=== PATIENT | male | born 1990 | race Caucasian/White ===

== ENCOUNTER → 2019-11-25 | Outpatient (CLI) | payer OTHER ==
[~2019-11-25] MED LIST: LEVAQUIN 750MG750 M1 PO; MOTRIN 200200 MG/TAB PO; TAMIFLU 75MG75 MG PO
== END ==
LOC: MC.RAD 11-23 13:15
DX: N63.20 Unspecified lump in the left breast, unspecified quadrant (principal)

== ENCOUNTER 2023-12-30 10:53 | Day surgery (SDC) | payer OTHER ==
[~2023-12-30] VITALS: Ht 193 cm; Wt 162.6 kg
[2023-12-30] VITALS (7 sets, daily range): BP systolic 144–160; BP diastolic 77–92; PULSE 64–78; TEMP 97.5–97.8
[~2023-12-30 10:53] MED LIST changes: +Famotidine 20 MG TAB PO SCH; +LR 1,000 ML IV SCH; +NS 20 ML IV ONE; +Ondansetron 4 MG/2 ML VIAL ONE; +dexAMETHasone 10 MG/ML VIAL ONE
[2023-12-30] MEDS ORDERED: fentaNYL 50 MCG/ML 2 ML VIAL ONE ×2 (12:33→15:44)
[2023-12-30] MEDS ORDERED: Ondansetron 4 MG/2 ML VIAL ONE (12:36)
[2023-12-30] MEDS ORDERED: dexAMETHasone 10 MG/ML VIAL ONE (12:36)
[2023-12-30] MEDS ORDERED: NS 20 ML IV ONE (12:36)
[2023-12-30] MEDS ORDERED: Lidocaine PF 2% (20 MG/ML) 5 ML VIAL ONE (14:27)
[2023-12-30] MEDS ORDERED: oxyCODONE/Acetaminophen 5-325 MG TAB PO PRN (14:45)
[2023-12-30] MEDS ORDERED: HYDROcodone/Acetaminophen 7.5-325 MG TAB PO PRN (14:45)
[2023-12-30] MEDS ORDERED: Morphine 4 MG/ML VIAL IV PRN (14:45)
[2023-12-30] MEDS ORDERED: Promethazine 25 MG TAB PO PRN (14:45)
[2023-12-30] MEDS ORDERED: Meperidine 50 MG/ML 1 ML VIAL IV PRN (15:15)
[2023-12-30] MEDS ORDERED: droPERidol 2.5 MG/ML 2 ML VIAL IV PRN (15:15)
[2023-12-30] MEDS ORDERED: fentaNYL 50 MCG/ML 1 ML SYRINGE/VIAL [PACU/SDC ONLY] IV PRN (15:15)
[2023-12-30] MEDS ORDERED: Ondansetron 4 MG/2 ML VIAL IV PRN (15:15)
[2023-12-30] MEDS ORDERED: HYDROmorphone 1 MG/1 ML SYRINGE [PACU/SDC ONLY] IV PRN (15:15)
[2023-12-30] MEDS ORDERED: Morphine 2 MG/1 ML VIAL [PACU/SDC ONLY] IV PRN (15:15)
[2023-12-30] MEDS ORDERED: Ketorolac 30 MG/ML VIAL IV SCH (17:00)
--- NOTE | 2023-12-30 18:35 | NUR ---
1705 RETURNS TO ROOM 4 PER CART. HOB ELEVATED 50 DEGREES. ALERT, RESP UNLABORED. VITAL SIGNS OBTAINED. TD WRAPPED SPLINT LEFT ARM INTACT. NEURO/CIRC CHECKS LEFT UPPER EXTREMITY INTACT. MOVES FINGERS, BRISK CAP REFILL. REPORTS SLIGHT NAUSEA AND FEELING WARM MODERATE LEFT ARM PAIN. CALL LIGHT AT SIDE. IN ROOM 1715 REPOSTIONS ON CART WITH SLIGHT ASSISTANCE. LYING SUPINE. HOB LOWERED TO 20 DEGREES. COOL CLOTH APPLIED TO FOREHEAD. ROOM LIGHTS DIMMED 1730 DOZING, AROUSES SPONTANEOUSLY. SLING TO LEFT ARE, LEFT ARM SUPPORTED/ELEVATED ON PILLOW, ICE PACK LEFT ELBOW AREA. IN ROOM 1730 DOZING 1745 AROUSES, COLOR PINK. HOB ELEVATED 40 DEGREES. TOLERATES PO WATER WITHOUT NAUSEA. 1755 AWAKE, ALERT. STATES "FEELING MUCH BETTER". REFUSES PO PAIN MED. DENIES NAUSEA. DISCHARGE INSTRUCTIONS REVIEWED. PATIENT AND VERBALIZE UNDERSTANDING. COPY PROVIDED IN DISCHARGE FOLDER 1810 HOB ELEVATED 75 DEGREES. CONVERSES WITH . 1825 SITS ON EDGE OF CART. DRESSES WITH MINIMAL ASSIST FROM . DENIES NAUSEA. DESCRIBES DISCOMFORT TOLERABLE
== END 2023-12-30 18:35 | disposition home or self-care (01) ==
LOC: SDCO 10:53
DX: S46.212A Strain of muscle, fascia and tendon of other parts of biceps, left arm, initial encounter (principal); E66.01 Morbid (severe) obesity due to excess calories; W28.XXXA Contact with powered lawn mower, initial encounter
CPT/HCPCS: J0665; J0690; J1100; J1170; J1885; J2405; J2704; J3010; J7120